=== PATIENT | female | born 1940 | race Two or more races ===

== ENCOUNTER 2023-08-13 10:36 | Outpatient (CLI) | payer OTHER | END 2023-08-13 10:49 | disposition home or self-care (01) | LOC: RAD 10:36 | PROVIDERS: ATTEND Internal Medicine | DX: J44.1 Chronic obstructive pulmonary disease with (acute) exacerbation (principal); M15.0 Primary generalized (osteo)arthritis; M25.551 Pain in right hip ==

== ENCOUNTER 2024-03-19 10:52 | Outpatient (CLI) | payer OTHER | END 2024-03-19 10:53 | disposition home or self-care (01) | LOC: NUCLEAR 10:52 | PROVIDERS: ATTEND Internal Medicine | DX: I50.9 Heart failure, unspecified (principal); R01.1 Cardiac murmur, unspecified ==

== ENCOUNTER 2024-03-27 11:11 | Emergency (ER) | payer OTHER ==
[~2024-03-27] VITALS: Ht 154.9 cm; Wt 43.1 kg
[2024-03-27] MEDS ORDERED: CEFTRIAXONE SODIUM 1,000 MG VIAL IM ONE (12:00)
[2024-03-27 12:37] LABS: ABG PH 7.437 (7.35-7.45); ABG PO2 78.1 mmHg (80-100); ABG pCO2 36.2 mmHg (35-45); BASE EXCESS 0.1 mmol/l; BICARBONATE 23.9 mmol/l (23-25); SaO2 95.9 %; allen test SATISFACTORY; o2 21 %; puncture site RADIAL LEFT
[2024-03-27] MEDS ORDERED: CEFTRIAXONE SODIUM 1,000 MG VIAL ONE (12:44)
[2024-03-27 12:58] LABS: HEMATOCRIT 40.2 % (36.0-45.00); HEMOGLOBIN 13.3 g/dL (12.0-15.00); MEAN CELL VOLUME 83.5 fL (80.00-100.00); MEAN CORPUSCULAR HEMOGLOBIN 27.5 pg (27.00-32.0); MEAN CORPUSCULAR HGB CONC 32.9 g/dl (32.0-36.0); PLATELET COUNT 465 K/uL (150-450); RED BLOOD COUNT 4.82 M/uL (4.00-6.00); RED CELL DISTRIBUTION WIDTH 16.6 % (11.5-14.5)
[2024-03-27 13:28] LABS: ALBUMIN 2.5 gm/dL (3.4-5.0); BILIRUBIN TOTAL 0.89 mg/dL (0.3-1.2); CREATININE SERUM 0.7 mg/dL (0.55-1.02); GFR 79.91; GLOBULINA 5.2 G/DL (2.4-3.5); POTASSIUM 4.69 mEq/L (3.5-5.1); TOTAL PROTEIN 7.7 gm/dL (6.4-8.2)
[2024-03-27 13:29] LABS: C-REACTIVE PROTEIN 6.12 MG/DL (0.00-0.29)
== END 2024-03-27 15:38 | disposition home or self-care (01) ==
LOC: ER 11:12
PROVIDERS: Emergency Medicine
DX: J22 Unspecified acute lower respiratory infection (principal); R05.9 Cough, unspecified; Z20.822 Contact with and (suspected) exposure to COVID-19
CPT/HCPCS: 36415; 71045; 82803; 94760; 99283; J0696